=== PATIENT | male | born 1955 | race Caucasian/White ===

== ENCOUNTER 2016-10-01 07:20 | Day surgery (SDC) | payer BC ==
[2016-09-29 13:19] LABS: HEMATOCRIT 45.8 % (40.0-51.0); HEMOGLOBIN 15.6 g/dL (13.6-17.8)
[2016-09-29 13:23] LABS: PARTIAL THROMBO TIME 29.2 SEC (22.5-37.2)
[2016-09-29 13:37] LABS: BUN (BLOOD UREA NITROGEN) 14 MG/DL (6-23); CALCIUM, SERUM 9.1 MG/DL (8.5-10.4); CHLORIDE, SERUM 107 MMOL/L (96-112); CO2 (CARBON DIOXIDE) 30 MMOL/L (24-34); CREATININE 1.02 MG/DL (0.70-1.30); GFR AFRICAN AMERICAN 91 ML/MIN (>=60); GFR NON AFRICAN AMERICAN 78 ML/MIN (>=60); GLUCOSE, SERUM 99 MG/DL (60-99); POTASSIUM, SERUM 4.6 MMOL/L (3.5-5.3); SODIUM, SERUM 143 MMOL/L (135-148)
--- NOTE | ~2016-10-01 | OP ---
Record Of Operation [place] [id number] [facility] [place]. [address] NAME: ASHLEY BEASLEY : 53 STATUS : [facility]#: [id number] AGE: 61 ADM/REG DATE : 10/01/16 MR#: [id number] REPORT SERV DATE: 10/01/16 DICTATED BY: RENETTA NGUYEN DATE: 10/01/16 REPORT STATUS : Draft TRANSCRIBED BY: MODL DATE: 10/01/16 DATE OF PROCEDURE: 10/01/2016 PREOPERATIVE DIAGNOSES: 1. Bilateral maxillary/ethmoid sinusitis. 2. Bilateral ostiomeatal unit, complex obstruction. 3. Bilateral inferior turbinate hypertrophy. 4. Left septal deviation. 5. Right lizeth bullosa. POSTOPERATIVE DIAGNOSES: 1. Bilateral maxillary/ethmoid sinusitis. 2. Bilateral ostiomeatal unit, complex obstruction. 3. Bilateral inferior turbinate hypertrophy. 4. Left septal deviation. 5. Right lizeth bullosa. PROCEDURE PERFORMED: 1. Left endoscopic septoplasty. 2. Bilateral inferior turbinate reduction. 3. Bilateral maxillary antrostomy. 4. Bilateral partial anterior ethmoidectomy. 5. Right lizeth bullosa excision. SURGEON: Renetta Nguyen M.D. RUST PROOFER: None. ANESTHESIA: General. COMPLICATIONS: None. ESTIMATED BLOOD LOSS: 10 mL. CONDITION: Stable to recovery. INDICATIONS: This is a 61-year-old male with chronic sinusitis, refractory to maximal medical therapy in with the CT imaging showing maxillary ethmoid of mucosal thickening along with ostiomeatal unit obstruction, right lizeth bullosa, and bilateral inferior turbinate hypertrophy, and left septal deviation. PROCEDURE IN DETAIL: The patient was identified in preoperative holding, taken back to the operating room, placed supine on the operating room table. General anesthesia was established. The image-guided system was calibrated to within 1 to 2 mm accuracy. A time- out was called, and the patient and procedure were confirmed. The nose was then prepped with 9 mL of 1% lidocaine with 1:100,000 epinephrine injected into the septum root of the Record Of Operation [address] [place]. [address] NAME: ASHLEY BEASLEY : 53 STATUS : [facility]#: [id number] AGE: 61 ADM/REG DATE : 10/01/16 MR#: [id number] REPORT SERV DATE: 10/01/16 DICTATED BY: RENETTA NGUYEN DATE: 10/01/16 REPORT STATUS : Draft TRANSCRIBED BY: IRIS DATE: 10/01/16 middle turbinate bilaterally, the uncinate process bilaterally, and the greater palatine foramina region bilaterally. Afrin-soaked pledgets were placed in the inferior and middle meatus on the right and left side. Vasoconstriction was allowed for 7 to 10 minutes. Initially, the 0 degree endoscope was used to examine the inferior middle meatus bilaterally. A left septal spur was noted at the left middle meatus. The lizeth bullosa was noted on the right. There was no major septal deviation obstructing access to the ethmoids. Initially, a combination of 0 degree and 30 degree scopes were used. The 0 degree scope was used initially to perform a right uncinectomy and then a backbiting forceps was used to take down the uncinate along with the shaver microdebrider. The lizeth bullosa was then taken down with a Carlo-Cut forceps and a turbinate scissor. The lateral leaflet of the lizeth bullosa was excised, creating more space in the middle meatus. I then used Blakesley-Paxton forceps and a J curette to enter the anterior ethmoid air cells and these were removed with a combination of these instruments. Intermittently through the dissection, the image-guided probe was used to ensure there was no contact with the lamina papyracea at the skull base. After the right maxillary antrostomy, the right lizeth bullosa excision, and the right anterior ethmoidectomy was performed, Afrin-soaked pledgets were placed in the middle and inferior meatus. Attention was turned to the left side. The [place] elevator was used to perform an uncinectomy on the left. A backbiting forceps was used to take down the uncinate along with the shaver microdebrider. The maxillary antrostomy was opened and a 30-degree scope was used to examine the sinus, which showed patency of the ostia and no purulence or polyposis noted. I then used the image-guided assistant drafter direct the attention to the anterior ethmoid air cells which were addressed using a Blakesley forceps and shaver microdebrider along with the J curette. After this was accomplished, the endoscopic septoplasty was performed. A sickle knife was used to excise along the leading edge of the bony septal spur that was at the middle meatus on the left side. Mucoperichondrial flaps were elevated superiorly and inferiorly with a Gillis elevator, and then the septal drill was used to drill down the septal spur. This created patency of the inferior meatus. Following this, the bilateral inferior turbinate reductions were performed using a Boies elevator to outfracture the inferior turbinates and then the coblating probe was passed along the inferior turbinate on the right side using 0 degree endoscopic visualization. Coblation was performed at the posterior mid and anterior thirds of the inferior turbinate on a setting of 6 for 20 seconds a piece. This was done on the left side as well. Afrin-soaked pledgets were placed after this for hemostasis. I then irrigated the sinuses on both sides with saline. Inspected both sinus areas for bleeding, which was resolved. A Surgiflo was placed in the right and left sinus for hemostasis. The patient was handed over to Anesthesia for extubation and returned to recovery. There were no complications. PH/MODL Renetta Nguyen, Record Of Operation [address] [address] NAME: ASHLEY BEASLEY : 53 STATUS : [facility] PAT#: [id number] AGE: 61 ADM/REG DATE : 10/01/16 MR#: [id number] REPORT SERV DATE: 10/01/16 DICTATED BY: RENETTA NGUYEN DATE: 10/01/16 REPORT STATUS : Draft TRANSCRIBED BY: IRIS DATE: 10/01/16 Anastacio / [id number] CC: Anastacio Lewis M.D.
[~2016-10-01 07:20] MED LIST: AEROSPAN INH; ALLERGY SHOTS; ASAB PO; C5; CELEBREX2 PO; IMDUR30 PO; LIPITOR40 PO; LOTREL1 CA1 PO; LOTREL1 CAP PO; MONODOX100 MG PO; PEPCID40 MG PO; PLAVIX PO; PRILOSEC40 MG PO; QNASL8.7 GM NAS; SINGULAIR1 PO; SINGULAIR5 PO; TYLENOL ARTH650 MG PO; ULTRAM50 PO; VIST25 PO; XYZAL5 MG PO; ZOFRAN4 PO; [UNRECOGNIZED DRUG - OTHER]
== END 2016-10-01 13:22 | disposition home or self-care (01) ==
LOC: SDC 07:20
PROVIDERS: Specialist
PROC: 09BL8ZZ Excision of Nasal Turbinate, Via Natural or Artificial Opening Endoscopic (ICD-10-PCS; 2016-10-01)
PROC: 09TU4ZZ Resection of Right Ethmoid Sinus, Percutaneous Endoscopic Approach (ICD-10-PCS; 2016-10-01)
PROC: 09TV4ZZ Resection of Left Ethmoid Sinus, Percutaneous Endoscopic Approach (ICD-10-PCS; 2016-10-01)
PROC: 099R4ZZ Drainage of Left Maxillary Sinus, Percutaneous Endoscopic Approach (ICD-10-PCS; principal; 2016-10-01 09:30)
PROC: 099Q4ZZ Drainage of Right Maxillary Sinus, Percutaneous Endoscopic Approach (ICD-10-PCS; 2016-10-01 09:30)
PROC: 09QM4ZZ Repair Nasal Septum, Percutaneous Endoscopic Approach (ICD-10-PCS; 2016-10-01 09:30)
DX: J32.2 Chronic ethmoidal sinusitis (principal); J32.0 Chronic maxillary sinusitis; J34.3 Hypertrophy of nasal turbinates; J34.2 Deviated nasal septum; J34.89 Other specified disorders of nose and nasal sinuses; J45.909 Unspecified asthma, uncomplicated; I10 Essential (primary) hypertension; K21.9 Gastro-esophageal reflux disease without esophagitis; Z91.013 Allergy to seafood; Z79.82 Long term (current) use of aspirin; Z79.2 Long term (current) use of antibiotics; Z79.899 Other long term (current) drug therapy; Z96.651 Presence of right artificial knee joint; Z98.890 Other specified postprocedural states
CPT/HCPCS: 36415; 80048; 85014; 85018; 85730; 88305; 93005; A9270-GY; C1713; J0690; J2250; J2405; J2710; J3010